=== PATIENT | male | born 1990 | race Two or more races ===

== ENCOUNTER 2018-12-14 20:13 | Emergency (ER) | payer OTHER ==
[~2018-12-14] VITALS: Ht 177.8 cm; Wt 83.9 kg
[2018-12-14 21:46] LABS: Basophils # (auto) 0 uL; Basophils % (auto) 0.3 % (0.0-2.0); Eosinophils # (auto) 0.2 uL; Eosinophils % (auto) 3.5 % (0.0-7.0); Hematocrit 45.8 % (41.0-53.0); Hemoglobin 15.7 g/dL (13.5-17.5); Lymphocytes # (auto) 1.6 uL; Lymphocytes % (auto) 31.6 % (10.0-50.0); Mean Corpuscular Hemoglobin 29.5 pg (28.0-32.0); Mean Corpuscular Hgb Conc. 34.3 g/dL (32.0-36.0); Monocytes # (auto) 0.6 uL; Monocytes % (auto) 11.9 % (0.0-12.0); Neutrophils # (auto) 2.6 uL; Neutrophils % (auto) 52.7 % (37.0-80.0); Nucleated Red Blood Cells % 0.1 %; Platelet Count (auto) 187 10^3/uL (140-450); Red Blood Cells 5.32 10^6/uL (4.5-5.90); Red Cell Distribution Width 13.8 % (11.8-14.3)
[2018-12-14 21:50] LABS: Alanine Aminotransferase 48 U/L (16-61); Albumin 4.2 g/dL (3.4-5.0); Anion Gap 3 (5-15); Blood Urea Nitrogen 13 mg/dL (7-18); Calcium 8.7 mg/dL (8.5-10.1); Carbon Dioxide 29 mmol/L (21-32); Chloride 109 mmol/L (98-107); Glucose 83 mg/dL (74-106); Magnesium 2.2 mg/dL (1.6-2.6); Potassium 4.2 mmol/L (3.5-5.1); Sodium 141 mmol/L (136-145)
[2018-12-14 22:07] LABS: Alkaline Phosphatase 131 U/L (45-117); Aspartate Aminotransferase 31 U/L (15-37); BUN/Creatinine Ratio 12.3; Bilirubin, Total 0.3 mg/dL (0.2-1.0); GFR African American 107 mL/min; GFR Non-African American 88 mL/min; Total Protein 7.6 g/dL (6.4-8.2)
[2018-12-14 22:22] VITALS: BP 113/70
== END 2018-12-14 22:28 | disposition home or self-care (01) ==
LOC: EDBD 20:13 → ER 20:26
DX: R07.89 Other chest pain (principal)
CPT/HCPCS: 36415; 71045; 80053; 83735; 84484; 85025; 93005